=== PATIENT | male | born 1945 | race Caucasian/White ===

== ENCOUNTER 2017-07-04 07:30 | Inpatient (IN) | payer OTHER, MEDICARE ==
[~2017-07-04] VITALS: Ht 175.3 cm; Wt 120.6 kg
[~2017-07-04 07:30] MED LIST: ASPI81TA23 PO; ATOR40TA16 PO; FENO160T PO; FINA5TAB2 PO; FLAX100013 PO; LISI10TA PO; MOBI7.5T PO; UBID30CA2 PO
[2017-07-04] MEDS ORDERED: CHLORHEXIDINE GLUCONATE 2 % 1 PACK (2 CLOTHS) TOPICAL PRN (09:30)
[2017-07-04] MEDS ORDERED: POVIDONE IODINE 5% (ANTISEPSIS KIT) 4 APPLICATIONS EACH NARE PRN (09:30)
[2017-07-04] MEDS ORDERED: LACTATED RINGER'S 1000 ML IV PRN (09:30)
[2017-07-04] MEDS ORDERED: SODIUM CHLORID 0.9% 500 ML IV PRN (09:30)
[2017-07-04] MEDS ORDERED: METOPROLOL TARTRATE 25 MG TAB PO PRN (09:30)
[2017-07-04] MEDS ORDERED: INSULIN HUMAN REGULAR 1,000 UNITS/10 ML VIAL SQ PRN (09:30)
[2017-07-04] MEDS ORDERED: CHLORHEXIDINE GLUCONATE 4% SOLN 120 ML BTL TOPICAL SCH (09:45)
[2017-07-04] MEDS ORDERED: VANCOMYCIN 1000 MG/NS 250 ML (for <70 kg) IV SCH ×2 (09:45)
[2017-07-04] MEDS ORDERED: ceFAZolin 2 GM PREMIX 50 ML IV SCH (09:45)
[2017-07-04] MEDS ORDERED: ROPIVACAINE PERI-ARTICULAR INJECTION. P-ARTICULR SCH ×5 (10:00)
[2017-07-04] MEDS ORDERED: GENTAMICIN SULFATE 80 MG/2 ML VIAL ONE (13:17)
[2017-07-04] MEDS ORDERED: ROPIVACAINE 0.5% PF INJ 30 ML VIAL ONE (14:52)
[2017-07-04] MEDS ORDERED: ACETAMINOPHEN 1000 MG/100 ML 0 ML IV ONE (16:53)
== END 2017-07-04 17:30 | disposition home or self-care (01) | DRG 554 ==
LOC: HSDI 09:09
PROVIDERS: ADMIT Orthopaedic Surgery Orthopaedic Surgery of the Spine; ATTEND Orthopaedic Surgery Orthopaedic Surgery of the Spine
DX: M17.11 Unilateral primary osteoarthritis, right knee (principal); Z53.8 Procedure and treatment not carried out for other reasons
CPT/HCPCS: 86850; 86900; 86901; 86920; 99211; G0463; J0131; J0735; J1580; J1885; J2795; J7120

== ENCOUNTER 2017-07-08 12:40 | Day surgery (SDC) | payer MEDICARE, OTHER ==
[~2017-07-08] VITALS: Ht 175.3 cm; Wt 121.7 kg
[2017-07-08] MEDS ORDERED: SODIUM CHLORID 0.9% 500 ML IV PRN (13:30)
[2017-07-08] MEDS ORDERED: CHLORHEXIDINE GLUCONATE 4% SOLN 120 ML BTL TOPICAL SCH (13:30)
[2017-07-08] MEDS ORDERED: POVIDONE IODINE 5% (ANTISEPSIS KIT) 4 APPLICATIONS EACH NARE PRN (13:30)
[2017-07-08] MEDS ORDERED: LACTATED RINGER'S 1000 ML IV PRN (13:30)
[2017-07-08] MEDS ORDERED: CHLORHEXIDINE GLUCONATE 2 % 1 PACK (2 CLOTHS) TOPICAL PRN (13:30)
[2017-07-08] MEDS ORDERED: VANCOMYCIN 1000 MG/NS 250 ML (for <70 kg) IV SCH ×2 (13:30)
[2017-07-08] MEDS ORDERED: METOPROLOL TARTRATE 25 MG TAB PO PRN (13:30)
[2017-07-08] MEDS ORDERED: INSULIN HUMAN REGULAR 1,000 UNITS/10 ML VIAL SQ PRN (13:30)
[2017-07-08] MEDS ORDERED: ceFAZolin 2 GM PREMIX 50 ML IV SCH (13:30)
[2017-07-08 13:42] VITALS: BP 130/78; PULSE 87; RESP 20; TEMP 98; O2SAT 95
[2017-07-08] MEDS ORDERED: ROPIVACAINE PERI-ARTICULAR INJECTION. P-ARTICULR SCH ×5 (14:00)
== END 2017-07-08 14:45 | disposition home or self-care (01) ==
LOC: HSDC 12:40 → UNDOADMIN 12:40 → HSDI 12:40 → HSDC 14:45 → UNDODISIN 14:45 → EDSTATUS 15:30
PROVIDERS: ATTEND Orthopaedic Surgery Orthopaedic Surgery of the Spine
DX: M17.0 Bilateral primary osteoarthritis of knee (principal); Z53.9 Procedure and treatment not carried out, unspecified reason
CPT/HCPCS: G0463; J0735; J1885; J2795; 99211

== ENCOUNTER 2017-08-05 11:33 | Inpatient (IN) | payer OTHER, MEDICARE ==
[~2017-08-05] VITALS: Ht 176.5 cm; Wt 122.5 kg
[2017-08-05] MEDS ORDERED: POVIDONE IODINE 5% (ANTISEPSIS KIT) 4 APPLICATIONS EACH NARE PRN (12:15)
[2017-08-05] MEDS ORDERED: SODIUM CHLORID 0.9% 500 ML IV PRN (12:15)
[2017-08-05] MEDS ORDERED: LACTATED RINGER'S 1000 ML IV PRN (12:15)
[2017-08-05] MEDS ORDERED: INSULIN HUMAN REGULAR 1,000 UNITS/10 ML VIAL SQ PRN (12:15)
[2017-08-05] MEDS ORDERED: CHLORHEXIDINE GLUCONATE 2 % 1 PACK (2 CLOTHS) TOPICAL PRN (12:15)
[2017-08-05] MEDS ORDERED: METOPROLOL TARTRATE 25 MG TAB PO PRN (12:15)
[2017-08-05] MEDS ORDERED: VANCOMYCIN 1000 MG/NS 250 ML (for <70 kg) IV SCH ×2 (12:30)
[2017-08-05] MEDS ORDERED: ceFAZolin 2 GM PREMIX 50 ML IV SCH (12:30)
[2017-08-05] MEDS ORDERED: CHLORHEXIDINE GLUCONATE 4% SOLN 120 ML BTL TOPICAL SCH (12:30)
[2017-08-05] MEDS ORDERED: ROPIVACAINE PERI-ARTICULAR INJECTION. P-ARTICULR SCH ×5 (13:00)
[2017-08-05] MEDS ORDERED: GENTAMICIN SULFATE 80 MG/2 ML VIAL ONE (13:44)
[2017-08-05] MEDS ORDERED: VANCOMYCIN HCL 1000 MG VIAL ONE ×2 (15:09→15:34)
[2017-08-05] MEDS ORDERED: MIDAZOLAM HCL 2 MG/2 ML VIAL ONE (17:16)
--- NOTE | 2017-08-05 17:23 | HHI.PR ---
Immediate Post Op Note Procedure Date: Aug 05, 2017 Pre Op Diagnosis: R Knee Severe OA;Genu Varus Deformity Post Op Diagnosis: Same Surgeon: Samir Hogan MD Refueling Ramp Attendant(s): Kayleigh Pinto PA-C Procedure: R TKR Complications: None Specimen(s) removed: None Estimated blood loss: 25cc Anesthesia: General, Regional Block, Local Drains: Hemovac Tourniquet time (min at mmHg) 63 mins @ 250 mm Hg Patient to: PACU Patient Condition: Good Implant/Devices: SEE IMPLANT LOG (if applicable) Date/Time of Procedure: SEE SURGICAL CARE RECORD Samir Hogan MD Aug 05, 2017 17:23
[2017-08-05] MEDS ORDERED: WALKER WHEELS/F1 MIS (17:30)
[2017-08-05] MEDS ORDERED: ONDANSETRON HCL 4 MG/2 ML VIAL IVP PRN (17:30)
[2017-08-05] MEDS ORDERED: MORPHINE SULFATE 8 MG/ML INJ IM PRN (17:30)
[2017-08-05] MEDS ORDERED: Post-op Orders (for Pharmacy) XX ONE (17:30)
[2017-08-05] MEDS ORDERED: ALUMINUM/MAGNESIUM/SIMETH 30 ML CUP PO PRN (17:30)
[2017-08-05] MEDS ORDERED: ACETAMINOPHEN/HYDROcodone 325 MG/7.5 MG TAB PO PRN ×2 (17:30)
[2017-08-05] MEDS ORDERED: ZOLPIDEM TARTRATE 5 MG TAB PO PRN (17:30)
--- NOTE | 2017-08-05 17:30 | HHI.FF ---
Face to Face Verification Diagnosis: (1) Osteoarthritis of right knee Physical Therapy Gait training, Transfer training, bed to chair Knee: Protocol: Right, Full weight bearing Right LE Weight Bearing: WB as tolerated Left LE Weight Bearing: WB as tolerated Nursing RN: 3 days/week x 2 weeks Nursing: Dressing changes (clean incision with alcohol and apply dry, sterile dressing ) Additional Instructions Pt/INR q Saturday and , call/text results to Kayleigh LOTT [phone] Goal INR 1.5-1.8 I have seen patient Peewee Figueredo Jr Wm on 08/05/17. My clinical findings support the need for the requested home health care services because: Deconditioned w/ increased weakness I certify that my clinical findings support that this patient is homebound because: Post-op weakness Samir Hogan MD Aug 05, 2017 17:30
[2017-08-05] MEDS ORDERED: *ONDANSETRON 4 MG VIAL PERIprocedural Use ONLY ONE (18:04)
[2017-08-05] MEDS: LACTATED RINGER'S 1000 ML INJ 1,000 ML IV SCH (18:13)
--- NOTE | 2017-08-05 18:25 | RADRPT ---
EXAM DATE/TIME: 08/05/2017 17:59 [facility] COMPARISON: No previous studies available for comparison. INDICATIONS : Post op right knee. MEDICAL HISTORY : None. SURGICAL HISTORY : Left knee total arthroplasty. ENCOUNTER: Initial ACUITY: 1 day PAIN SCORE: Non-responsive. LOCATION: Right knee. FINDINGS: Postoperative changes from total knee arthroplasty. The hardware appears intact. There is a 6 mm kimberly cency between the anterior femoral cortex and metallic hardware. 2 surgical drains are present in th e suprapatellar region. Scattered anterior soft tissue gas and multiple skin amina at vertical inc ision site. CONCLUSION: Expected postsurgical changes from total knee arthroplasty. Jeremías Noriega MD on August 05, 2017 at 18:21 Board Certified Radiologist. This report was verified electronically.
[2017-08-05] MEDS ORDERED: DO NOT ADM ANY ANTICOAGULANT DRUGS PRN (18:45)
[2017-08-05 20:00] VITALS: BP 123/68; PULSE 100; RESP 24; TEMP 97.9; O2SAT 95
[2017-08-05] MEDS ORDERED: ATORVASTATIN 40 MG TAB PO SCH (21:00)
[2017-08-06] VITALS: BP 115/60; PULSE 103; RESP 22; TEMP 98; O2SAT 95
[2017-08-06 04:00] VITALS: BP 116/62; PULSE 82; RESP 22; TEMP 98.2; O2SAT 95
[2017-08-06] MEDS: LACTATED RINGER'S 1000 ML INJ 1,000 ML IV SCH (05:55)
--- NOTE | 2017-08-06 07:04 | PD.ORT.PN ---
Subjective Subjective Remarks POD#1 R TKR Patient wishes to go home today No c/o pain;no sob;no chest pain Objective Vitals Vital Signs Date Time Temp Pulse Resp B/P (MAP) Pulse Ox O2 Delivery O2 Flow Rate FiO2 08/06/17 04:00 98.2 82 22 116/62 (80) 95 08/06/17 00:00 98.0 103 22 115/60 (78) 95 08/05/17 20:00 97.9 100 24 123/68 (86) 95 08/05/17 19:45 95 18 146/69 (94) 95 Nasal Cannula 2 08/05/17 19:00 98.8 88 19 127/64 (85) 96 Nasal Cannula 2 08/05/17 18:45 86 19 131/63 (85) 97 Nasal Cannula 2 08/05/17 18:30 86 13 144/69 (94) 97 Nasal Cannula 2 08/05/17 18:15 87 12 147/74 (98) 97 Nasal Cannula 2 08/05/17 18:00 92 12 155/84 (107) 95 Nasal Cannula 2 08/05/17 17:45 97 19 150/80 (103) 94 Nasal Cannula 2 08/05/17 17:34 98.3 106 12 173/87 (115) 93 Nasal Cannula 3 I/O 08/05/17 08/05/17 08/05/17 08/06/17 08/06/17 08/06/17 07:00 15:00 23:00 07:00 15:00 23:00 Intake Total 1380 ml 960 ml Output Total 325 ml 800 ml Balance 1055 ml 160 ml Intake Oral 960 ml IV Total 130 ml Other 1250 ml Output Urine Total 800 ml Drainage Total 200 ml Estimated Blood Loss 25 ml Other 100 ml Imaging Last 24 hours Impressions Knee X-Ray 08/05/17 1725 Signed Impressions: Service Date/Time: Saturday, August 05, 2017 17:59 - CONCLUSION: Expected postsurgical changes from total knee arthroplasty. Jeremías Noriega MD Objective Remarks N/V intact Neg kaylan's sign;no calf tenderness Assessment & Plan Assessment and Plan Ortho stable PT/Rehab DVT prophylaxsis with coumadin,TEDS,sequentials D/C home today;C RN,PT Samir Hogan MD Aug 06, 2017 07:04
[2017-08-06 08:00] VITALS: BP 133/77; PULSE 87; RESP 17; TEMP 98.1; O2SAT 93
[2017-08-06 08:29] LABS: HEMATOCRIT 35.5 % (39.0-51.0); REVIEW FLAG FINAL
[2017-08-06 08:33] LABS: PROTHROMBIN TIME - PATIENT 10.6 SEC (9.8-11.6)
[2017-08-06] MEDS ORDERED: FINASTERIDE 5 MG TAB PO SCH (09:00)
[2017-08-06] MEDS ORDERED: LISINOPRIL 10 MG TAB PO SCH (09:00)
[2017-08-06] MEDS ORDERED: FENOFIBRATE 145 MG TAB PO SCH (09:00)
[2017-08-06] MEDS ORDERED: HYDROCHLOROTHIAZIDE 12.5 MG CAP PO SCH (09:00)
[2017-08-06] MEDS ORDERED: NON-FORMULARY DRUG (Lisinopril-Hctz 1 TAB) PO SCH (09:00)
[2017-08-06 09:47] VITALS: O2SAT 94
[2017-08-06 11:42] VITALS: BP 121/64; PULSE 104; RESP 17; TEMP 97.7; O2SAT 94
[2017-08-06] MEDS ORDERED: HYDR-3288 PO (15:53)
[2017-08-06] MEDS ORDERED: COUM5TAB PO (15:54)
[2017-08-06] MEDS ORDERED: WARFARIN SOD 5 MG TAB PO SCH (16:00)
[2017-08-06] MEDS ORDERED: WARFARIN SOD 7.5 MG TAB PO ONE (16:00)
--- NOTE | 2017-08-06 18:21 | MP ---
cc: HAYWARD VANCE HAMILTON ALBERT DATE OF SURGERY 08/05/17 PREOPERATIVE DIAGNOSIS Right knee severe tricompartmental osteoarthritis, severe genu varus deformity. POSTOPERATIVE DIAGNOSIS Right knee severe tricompartmental osteoarthritis, severe genu varus deformity. PROCEDURE Right total knee arthroplasty - cemented Biomet vanguard SURGEON Johanna Hogan MD AMBULATORY CARE DEYSI Perkins ANESTHESIA General, regional adductor canal block, local intra-articular block. TOURNIQUET TIME 63 minutes at 250 mmHg ESTIMATED BLOOD LOSS 25 mL COMPLICATIONS None. CONDITION Stable PLAN OF ACTIVITY As per orders. PROCEDURE IN DETAIL My shop assistant, DEYSI White, was present for the entire surgical case. She was medically necessary for the entire case because of the complexity of the case to facilitate the performance of the procedure. The DIRECTOR HUMAN SERVICES at the back table did not have a skill set for this case to manipulate the instruments e.g. the multiple different types of soft tissue retractors, trial implants, permanent implants including bone cement. The patient was brought to the operating room and had satisfactory general anesthesia, adductor canal anesthesia by Dr. Jovanni Kelley Department of Anesthesia. The right lower extremity was prepped and draped in the usual sterile manner. The extremity was exsanguinated by elevation, tourniquet inflated 250 mmHg. Anterior surgical exposure to the knee was made. Primary capsulotomy was performed. Patient was found to have severe tricompartmental osteoarthritis involving all three compartments of the knee. The remaining portion of the medial lateral meniscus was removed. The anterior cruciate ligament was already gone from previous injury. The posterior cruciate ligament was preserved. Prepatellar fat pad was surgically excised. Using the Biomet vanguard total knee arthroplasty system IM guide was used at the distal femoral cut. This was in 5 degrees of valgus to accept a 72.5 mm femoral component. Extramedullary guide was used for the proximal tibia and this was to accept a 83 mm tibial component. The undersurface of the patella was removed in order to accept a 34-mm three-pronged patellar prosthesis and a 12 x 83 mm polyethylene plastic trial was found to be satisfactory with satisfactory balance of the knee in both flexion and also in extension. All trial components were removed. Preparation for cementing was made. The knee was injected with 100 mL of local anesthesia provided by the Department of Pharmacy. The knee was irrigated with copious amounts of sterile saline antibiotic solution. Two packages of Palicos bone high viscosity bone cement was used. First, the tibial component was cemented which was an 83-mm tibial component. This was followed by the femoral component which is a 72.5 mm femoral component. All excess bone cement was removed and a 12 x 83 mm trial tibial prosthesis was inserted onto the tibial tray. The undersurface of the patella was cemented, a 34-mm three-pronged patellar prosthesis was cemented. All excess bone cement was removed. The bone cement was allowed to harden over 13 minutes. The knee was irrigated with 4000 mL of sterile saline antibiotic solution. All excess bone cement was removed. The trial polyethylene plastic was removed and then the final tibial polyethylene plastic was inserted. This was 12 mm in height in 83 mm size tibial prosthesis. The clipping mechanism was utilized in order to attach the tibial polyethylene plastic onto the tibial tray. The tourniquet was deflated. All bleeders were individually coagulated. The wound was closed over two Hemovac drains hooked up to an automatic type system. The wound itself was dry. The capsule and extensor mechanism were closed with multiple interrupted #2 Tycron suture. Subcutaneous layers with 0 Vicryl and 2-0 Vicryl. Skin was approximated with skin amina. Sterile dressings were applied. The patient tolerated the procedure well and arrived to recovery room in stable and satisfactory condition. MD SHAHRIAR Foreman/ /5:12 PM /5:59 PM
== END 2017-08-06 17:20 | disposition home health service (06) | DRG 470 ==
LOC: HSDI 11:33 → N06A 19:59
PROVIDERS: ADMIT Orthopaedic Surgery Orthopaedic Surgery of the Spine; ATTEND Orthopaedic Surgery Orthopaedic Surgery of the Spine
PROC: 3E0T3BZ Introduction of Anesthetic Agent into Peripheral Nerves and Plexi, Percutaneous Approach (ICD-10-PCS; 2017-08-05)
PROC: 0SRC0J9 Replacement of Right Knee Joint with Synthetic Substitute, Cemented, Open Approach (ICD-10-PCS; principal; 2017-08-05 14:51)
DX: M17.11 Unilateral primary osteoarthritis, right knee (principal); M21.161 Varus deformity, not elsewhere classified, right knee
CPT/HCPCS: 73560; 85014; 85018; 85610; 86850; 86900; 86901; 86920; 94150; C1776; J0690; J0735; J1580; J1885; J2250; J2405; J2795; J3010; J3370; J7120; L1830

== ENCOUNTER 2018-01-30 14:03 | Emergency (ER) | payer OTHER ==
[~2018-01-30 14:03] MED LIST changes: -ASPI81TA23 PO; +COUM5TAB PO; +HYDR-3288 PO; -MOBI7.5T PO; -UBID30CA2 PO; +WALKER WHEELS/F1 MIS
[2018-01-30 14:23] VITALS: BP 161/89; PULSE 102; RESP 20; TEMP 98.7; O2SAT 98
[2018-01-30 14:27] VITALS: BP 161/89; PULSE 102; RESP 20; TEMP 98.7; O2SAT 97
[2018-01-30] MEDS ORDERED: ASPI81CH6 CHEW (14:34)
[2018-01-30] MEDS ORDERED: MOBI15TA PO ×3 (14:34→19:22)
[2018-01-30] MEDS ORDERED: LIDOCAINE HCL 1% 30 ML VIAL INFIL ONE (14:45)
[2018-01-30] MEDS ORDERED: TETANUS/DIPHTHERIA TOXOID ADULT 0.5 ML VIAL IM ONE (14:45)
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
[2018-01-30] MEDS ORDERED: LIDOCAINE HCL 1% PF 30 ML VIAL ONE (17:16)
[2018-01-30 17:30] VITALS: BP 180/89; PULSE 94; RESP 20; O2SAT 98
[2018-01-30] MEDS ORDERED: ROBA750T PO ×2 (18:03→19:22)
[2018-01-30] MEDS ORDERED: NORC5TAB PO ×2 (18:03→19:22)
[2018-01-30] MEDS ORDERED: KETOROLAC TROMETHAMINE 60 MG/2 ML (IM) VIAL IM ONE (18:15)
[2018-01-30] MEDS ORDERED: ACETAMINOPHEN/HYDROcodone 325 MG/5 MG TAB PO ONE (18:15)
--- NOTE | 2018-01-30 19:05 | PD ---
Physical Exam Date Seen by Provider: Jan 30, 2018 Time Seen by Provider: 19:04 Data Data Last Documented VS Vital Signs Date Time Temp Pulse Resp B/P (MAP) Pulse Ox O2 Delivery O2 Flow Rate FiO2 01/30/18 17:30 94 20 180/89 (119) 98 Room Air 01/30/18 14:27 98.7 Orders Orders Tetanus/Diphtheria Tox Adult (Tetanus/Di (01/30/18 14:45) Lidocaine 1% Inj (Xylocaine 1% Inj) (01/30/18 14:45) Ct Brain W/O Iv Contrast(Rout) (01/30/18 14:33) Hand, Complete ([id number]) (01/30/18 14:33) Shoulder, Complete (>2vws) (01/30/18 14:37) Chest, Single Ap (01/30/18 14:37) Ct Thorax/ Chest Wo Iv Contras (01/30/18 15:19) Lidocaine Pf 1% Inj (Xylocaine-Mpf 1% In (01/30/18 17:16) Acetamin-Hydrocod 325-5 Mg (Koppel 5-325 (01/30/18 18:15) Ketorolac Inj (Toradol Inj) (01/30/18 18:15) Ed Discharge Order (01/30/18 18:56) MDM Supervised Visit with JEZ: No Narrative Course I was asked to evaluate this patient's left hand laceration. The patient was initially seen by Dr. Trent. Please see his note for full H&P. On my exam there is a 3 cm stellate laceration over the posterior aspect of the left hand. No active bleeding. No visible foreign body. Patient retains full , active, painless ROM of the left hand and wrist. Fifth digit is absent at the MP joint secondary to distant injury in childhood. Laceration repair was performed. Please see my procedure note for details. Dr. Trent retains care of this patient. Please see his note for disposition. Procedures Procedure Narrative LACERATION LOCATION: Posterior left hand LENGTH: 3 cm to NUMBER OF STITCHES/GUNNER: 4 REPAIR: The area of the laceration was prepped with Betadine and sterilely draped. The laceration was infiltrated with 1% lidocaine. The wound was copiously irrigated and explored without evidence of foreign body, tendon injury or neurovascular injury. The wound was closed using 4-0 Prolene. This was a single layer repair. A sterile dressing was applied. The patient was advised to keep the dressing clean and dry. Patient tolerated the procedure well. Diagnosis Primary Impression: Right rib fracture Qualified Codes: S22.41XA - Multiple fractures of ribs, right side, initial encounter for closed fracture Additional Impressions: Closed head injury Qualified Codes: S09.90XA - Unspecified injury of head, initial encounter Laceration of left hand Qualified Codes: S61.412A - Laceration without foreign body of left hand, initial encounter Patient Instructions: General Instructions Additional Instruction: Wound care daily. Head trauma instructions given. Take medication as needed for pain. Follow-up with personal physician. Return immediately if increasing chest pain shortness of breath. Scripts Meloxicam (Mobic) 15 Mg Tab 15 MG PO DAILY for Pain, #30 TAB 0 Refills Prov: Ismael Trent MD 01/30/18 Methocarbamol (Robaxin) 750 Mg Tab 750 MG PO QID for Muscle Spasm, #40 TAB 0 Refills Prov: Ismael Trent MD 01/30/18 Hydrocodone-Acetaminophen (Koppel) 5 Mg-325 Mg Tab 1 TAB PO Q6H Y for PAIN, #12 TAB 0 Refills Prov: Ismael Trent MD 01/30/18 Disposition: 01 DISCHARGE HOME Condition: Stable Gabriela Barajas Jan 30, 2018 19:05
== END 2018-01-30 19:38 | disposition home or self-care (01) ==
LOC: NEPC 14:03
DX: S22.41XA Multiple fractures of ribs, right side, initial encounter for closed fracture (principal); S09.90XA Unspecified injury of head, initial encounter; S61.412A Laceration without foreign body of left hand, initial encounter; S00.81XA Abrasion of other part of head, initial encounter; M54.6 Pain in thoracic spine; Z23 Encounter for immunization; V29.9XXA Motorcycle rider (driver) (passenger) injured in unspecified traffic accident, initial encounter; I10 Essential (primary) hypertension; E78.00 Pure hypercholesterolemia, unspecified; N40.0 Benign prostatic hyperplasia without lower urinary tract symptoms; Z87.39 Personal history of other diseases of the musculoskeletal system and connective tissue; Z86.79 Personal history of other diseases of the circulatory system
CPT/HCPCS: 12002; 70450; 71045; 71250; 73030; 73130; 90471; 90714; 96372; 99284; J1885